=== PATIENT | female | born 1935 | race Caucasian/White ===

== ENCOUNTER → 2017-07-02 | Outpatient (CLI) | payer MEDICARE, OTHER ==
[~2017-07-02] MED LIST: ACYCLOVIR800 MG PO; AMLO5TAB PO; AZITHROMYCIN250 MG PO; CEFDINIR300 M1 PO; CELEBREX200 MG PO; CITALOPRAM HYDR10 MG PO; HYDROCHLOROTH12.5 M1 PO; LIPITOR10 MG PO; LORTAB 5/500 501 TAB PO; PREDNICOT20 MG PO; PREDNISOLONE5 MG PO; PRINIVIL40 MG PO; PROTONIX 40MG T40 MG PO; ZYTIGA250 MG PO
--- NOTE | 2017-07-02 11:29 | RADIOLOGY REPORT PS360 ---
CHEST(2 VIEWS-NOT PORTABLE) HISTORY: COUGH, FEVER ORDERING PHYSICIAN: Scar Musa MD PATIENT AGE: 82 years COMPARISON: 10/24/2012 FINDINGS: There is cardiomegaly with mild pulmonary venous congestion consistent with mild CHF. Hiatal hernia is noted. There is a 4 cm opacity in the left lung base. This could be related to pulmonary mass, dense consolidation, or an usual summation artifact.. No effusions. There are degenerative changes in the thoracic spine. IMPRESSION: 1. Mild CHF. 2. 4 cm opacity left lung base which could be due to summation density, pulmonary mass, or dense consolidation. CT may better evaluate. 3. Hiatal hernia
== END ==
LOC: RAD 11:10
DX: R05 Cough (principal); R50.9 Fever, unspecified